=== PATIENT | female | born 1945 | race Caucasian/White ===

== ENCOUNTER 2016-07-18 10:49 | Emergency (ER) | payer MEDICARE, BC ==
[2016-07-18 11:13] VITALS: BP 143/60
[2016-07-18] MEDS ORDERED: Oxymetazoline 0.05% Nasal Spray 15 ML Bottle NAS ONE (11:57)
--- NOTE | 2016-07-18 12:00 | EDM.PDOC ---
ED HPI ENT - General Chief Complaint: ENT Problem Stated Complaint: NOSEBLEED Time Seen by Provider: 07/18/16 11:57 Source: Reports: Patient History Limitations: Reports: No limitations - History of Present Illness INITIAL COMMENTS - FREE TEXT/NARRATIVE: pt arrived with a nosebleed from the left nostril. She states it was bleeding very heavy prior to arrival. She is on plavix. Timing/Duration: Reports: Hour(s):, Waxing/waning Location: Reports: nose Associated symptoms: Reports: denies other symptoms - Related Data Allergies/ADRs: Allergies Allergy/AdvReac Type Severity Reaction Status Date / Time Sulfa (Sulfonamide Allergy Airway Verified 07/18/16 11:00 Antibiotics) Tightness Narcotic pain meds Allergy Itching Uncoded 07/18/16 11:00 Home Meds: Home Meds Beclomethasone Dipropionate [Qvar] 07/18/16 [History] Budesonide/Formoterol Fumarate [Symbicort 80-4.5 Mcg Inhaler] 07/18/16 [History ] Citalopram [Citalopram HBr] 07/18/16 [History] Clopidogrel [Plavix] 07/18/16 [History] Losartan [Cozaar] 07/18/16 [History] Simvastatin [Simvastatin] 07/18/16 [History] amLODIPine Besylate [Amlodipine Besylate] 07/18/16 [History] hydrALAZINE [Apresoline] 07/18/16 [History] Past Medical History Genitourinary History: Reports: Other (see below) Other Genitourinary History: [place] stent Musculoskeletal History: Reports: Back pain, chronic, Neck pain, chronic - Past Surgical History Cardiovascular Surgical History: Reports: Coronary artery stent Musculoskeletal Surgical History: Reports: Shoulder surgery Social & Family History - Tobacco Use Smoking Status *Q: Former Smoker ED ROS ENT - Review of Systems Review Of Systems: See Below Constitutional: Reports: no symptoms HEENT: Reports: Nosebleed, Other (pt was bleeding heavily from the left nostril. ) Respiratory: Reports: No Symptoms Cardiovascular: Reports: No symptoms Endocrine: Reports: no symptoms GI/Abdominal: Reports: No symptoms : Reports: no symptoms ED EXAM, ENT - Physical Exam Exam: See Below Text/Narrative:: On arrival she had some bleeding from the left nostril . A clamp was placed on it and the bleeding stopped. Exam Limited By: No limitations General Appearance: alert, anxious Ears: normal TMs Nose: other ( The clamp was placed on the nose. She had had bleeding from the left nostril. ) Mouth/Throat: Normal inspection Head: atraumatic Neck: normal inspection Course - Vital Signs Last Recorded V/S: Last Vital Signs Temp 36.9 C 07/18/16 11:09 Pulse 79 07/18/16 11:09 Resp 14 07/18/16 11:09 BP 143/60 H 07/18/16 11:09 Pulse Ox 96 07/18/16 11:09 - Orders/Labs/Meds Meds: Medications Discontinued Medications Generic Name Dose Route Start Last Admin Trade Name Oleg PRN Reason Stop Dose Admin Oxymetazoline HCl 1 ml 07/18/16 11:57 07/18/16 12:07 Afrin Original 0.05% Nasal [place] BRANDIE 07/18/16 11:58 1 spray ONETIME ONE Administration - Re-Assessments/Exams Free Text/Narrative Re-Assessment/Exam: 07/18/16 12:52 She was watched for 3/4 hour and had no further bleeding. She had the nose sprayed with afrin both nostrils. Departure - Departure Time of Disposition: 12:53 Disposition: Home, Self-Care 01 Condition: fair Clinical Impression: Nosebleed Forms: ED Department Discharge Care Plan Goals: for next 3 days sray the nostrils qid with afrin sray. rtc if there is heavy bleeding.
== END 2016-07-18 13:31 | disposition home or self-care (01) ==
LOC: JP.ED 10:49
DX: R04.0 Epistaxis (principal); Z95.5 Presence of coronary angioplasty implant and graft; Z98.890 Other specified postprocedural states; Z79.02 Long term (current) use of antithrombotics/antiplatelets; Z79.899 Other long term (current) drug therapy; Z87.891 Personal history of nicotine dependence; Z88.2 Allergy status to sulfonamides; Z88.5 Allergy status to narcotic agent
CPT/HCPCS: 99283; A9270; 99282

== ENCOUNTER 2021-06-12 17:34 | Emergency (ER) | payer BC, MEDICARE ==
[2021-06-12 17:48] VITALS: BP 138/53; PULSE 79
[2021-06-12] MEDS ORDERED: LORazepam 1 MG Tab PO ONE (18:29)
== END 2021-06-12 18:44 | disposition home or self-care (01) ==
LOC: JP.ED 17:34
DX: R04.0 Epistaxis (principal); I10 Essential (primary) hypertension; Z88.2 Allergy status to sulfonamides; Z88.8 Allergy status to other drugs, medicaments and biological substances; Z79.02 Long term (current) use of antithrombotics/antiplatelets; Z79.899 Other long term (current) drug therapy
CPT/HCPCS: 30903; 99283; A9270